=== PATIENT | female | born 1980 | race American Indian/Alaskan Native ===

== ENCOUNTER 2016-07-18 14:32 | Emergency (ER) | payer MEDICAID, OTHER ==
[2016-07-18 14:39] VITALS: RESP 20; TEMP 98.2
--- NOTE | 2016-07-18 15:11 | C.PDOC ---
History Of Present Illness 36 y/o female, presents to the ED for evaluation of low back pain which radiates to abdomen, and also high blood pressure for 2 days. Patient also reports chronic back pain, caused by herniated disc, was exacerbated when she received epidural for her delivery on 04/29/16. Patient has not taken any medication for pain. Patient states she recently ran out of her blood pressure medication and requests a refill. Additionally, patient requests a test. Patient denies nausea, vomiting, diarrhea, dysuria or hematuria. Time Seen by Provider: 07/18/16 14:59 Chief Complaint (Nursing): Abdominal Pain History Per: Patient History/Exam Limitations: no limitations Current Symptoms Are (Timing): Still Present Quality Of Discomfort: "Pain" Associated Symptoms: denies: Nausea, Vomiting, Diarrhea, Urinary Symptoms ( dysuria/hematuria) Additional History Per: Patient Abnormal Vaginal Bleeding: No Past Medical History Reviewed: Historical Data, Nursing Documentation, Vital Signs Vital Signs: Last Vital Signs Temp 98.2 F 07/18/16 16:50 Pulse 50 L 07/18/16 16:50 Resp 20 07/18/16 16:50 BP 162/89 H 07/18/16 16:50 Pulse Ox 97 07/18/16 16:50 - Medical History PMH: Depression, HTN Denies: Chronic Kidney Disease Surgical History: No Surg Hx - [facility] Procedures ABD WALL CAPRI REPAIR NEC (12/20/14) OTH LYSIS-PERITONEAL ADHES (12/20/14) Family History: States: Unknown Family Hx - Social History Hx Alcohol Use: Yes Hx Substance Use: No - Immunization History Hx Tetanus Toxoid Vaccination: No Hx Influenza Vaccination: No Hx Pneumococcal Vaccination: No Review Of Systems Except As Marked, All Systems Reviewed And Found Negative. Gastrointestinal: Positive for: Abdominal Pain. Negative for: Nausea, Vomiting , Diarrhea Genitourinary: Negative for: Dysuria, Hematuria Musculoskeletal: Positive for: Back Pain (lower ) Physical Exam - Physical Exam Appears: Non-toxic, No Acute Distress Skin: Normal Color, Warm, Dry Head: Atraumatic, Normacephalic Eye(s): bilateral: Normal Inspection Oral Mucosa: Moist Neck: Normal ROM, Supple Chest: Symmetrical, No Deformity, No Tenderness Cardiovascular: Rhythm Regular, No Murmur Respiratory: Normal Breath Sounds, No Rales, No Rhonchi, No Wheezing Gastrointestinal/Abdominal: Bowel Sounds, Soft, No Tenderness, No Mass, No Distention, No Guarding, No Rebound, No Hernia, No Ascites Back: Normal Inspection, No CVA Tenderness, No Vertebral Tenderness, Paraspinal Tenderness (paralumbar ) Extremity: Normal ROM, No Tenderness, No Pedal Edema, Capillary Refill (less than 2 seconds), No Deformity, No Swelling Neurological/Psych: Oriented x3, Normal Speech Gait: Steady ED Course And Treatment O2 Sat by Pulse Oximetry: 100 (on RA ) Pulse Ox Interpretation: Normal Medical Decision Making Medical Decision Making: Impression: 36 y/o female with lower back pain and requesting medication refill Plan: * Urine preg and analysis Progress Notes: Urine was negative. Tramadol ordered. UA was negative. Patient feeling better, she was laying in bed with headphones and listening to phone. Medication refill provided to patient. Advise follow up with clinic or PMD for further evaluation. Disposition Counseled Patient/Family Regarding: Need For Followup, Rx Given - Disposition Referrals: [facility] [Outside] [facility] [Outside] Disposition: HOME/ ROUTINE Disposition Time: 16:50 Condition: STABLE Additional Instructions: Follow up with your primary medical doctor or clinic in 2-5 days for further evaluation. Take medications as prescribed. Return to the emergency department at any time if symptoms persist or worsen. Prescriptions: Ibuprofen [Motrin] 600 mg PO Q8 #30 tab Lisinopril [Zestril] 20 mg PO DAILY #30 tab metFORMIN [glucOPHAGE] 250 mg PO BID #30 tab Instructions: Chronic Back Pain (ED), Medicine Refill (ED) - POA Present On Arrival: None - Clinical Impression Clinical Impression: Chronic back pain, examination or test, negative result - PA / DIGITIZER / Resident Statement MD/DO has reviewed & agrees with the documentation as recorded. - Scribe Statement The provider has reviewed the documentation as recorded by the Scribe (Silvina Gr) All medical record entries made by the Scribe were at my direction and personally dictated by me. I have reviewed the chart and agree that the record accurately reflects my personal performance of the history, physical exam, medical decision making, and the department course for this patient. I have also personally directed, reviewed, and agree with the discharge instructions and disposition.
[2016-07-18 15:36] LABS: RBC URINE 1 /hpf (0-3); URINE BILIRUBIN NEGATIVE (NEGATIVE); URINE BLOOD NEGATIVE (NEGATIVE); URINE COLOR Yellow (YELLOW); URINE GLUCOSE (UA) NORMAL (Normal); URINE KETONE NEGATIVE (NEGATIVE); URINE LEUKOCYTE ESTERASE NEG Leu/uL (Negative); URINE PROTEIN NEGATIVE (NEGATIVE); URINE UROBILINOGEN NORMAL mg/dL (0.2-1.0); WBC URINE 1 /hpf (0-5)
[2016-07-18 16:53] VITALS: BP 162/89; PULSE 50
[2016-07-18 17:17] VITALS: O2SAT 100
== END 2016-07-18 16:50 | disposition home or self-care (01) ==
LOC: C.ER 14:32
DX: M54.9 Dorsalgia, unspecified (principal); G89.29 Other chronic pain; Z32.02 Encounter for pregnancy test, result negative; I10 Essential (primary) hypertension; Z72.0 Tobacco use